=== PATIENT | female | born 1975 | race Caucasian/White ===

== ENCOUNTER → 2018-03-26 | Outpatient (REF) | payer BC ==
[2018-03-29 14:10] LABS: HPV HYBRID CAPTURE II Negative (Negative)
== END ==
LOC: M LAB REF 09:13
DX: Z12.4 Encounter for screening for malignant neoplasm of cervix (principal)
CPT/HCPCS: G0123

== ENCOUNTER 2020-03-28 19:00 | Emergency (ER) | payer BC ==
[2020-03-28] MEDS ORDERED: GI COCKTAIL 50ML BTL(HYOSCYAMINE/MAALOX/LIDOCAINE VISCOUS)(1:3:1) As Ordered ONE (23:07)
[2020-03-28] MEDS ORDERED: ASPIRIN 325 MG TAB As Ordered ONE (23:07)
[2020-03-29] MEDS ORDERED: SUCRALFATE 1 GM TAB As Ordered ONE (02:24)
[2020-04-24 17:16] LABS: BLOOD UREA NITROGEN 14 MG/DL (7-18); CALCIUM LEVEL 9.2 MG/DL (8.5-10.1); CARBON DIOXIDE LEVEL 25 MEQ/L (21-32); CHLORIDE LEVEL 109 MEQ/L (98-107); CK-MB VALUE MASS < 1.0 NG/ML (<3.6); CPK CREATINE PHOSPHOKINASE 80 U/L (26-192); CREATININE FOR GFR 0.95 MG/DL (0.55-1.30); GLOMERULAR FILTRATION RATE > 60.0 (>58); GLUCOSE, FASTING 114 MG/DL (70-100); MB/CK RELATIVE INDEX 1.25 (< OR =4); POTASSIUM SERUM 4.3 MEQ/L (3.5-5.1); SODIUM LEVEL 142 MEQ/L (136-145); TROPONIN I < 0.02 NG/ML (< 0.10)
[2020-05-01 12:33] LABS: HEMATOCRIT 36.8 % (36.0-47.0); HEMOGLOBIN 12.4 g/dl (12.0-15.5); MEAN CORPUSCULAR HEMOGLOBIN 30.2 pg (27.0-33.0); MEAN CORPUSCULAR HGB CONC 33.7 g/dl (32.0-36.5); MEAN CORPUSCULAR VOLUME 89.8 fl (80.0-96.0); PLATELET COUNT, AUTOMATED 255 10^3/uL (150-450); WHITE BLOOD COUNT 6.5 10^3/uL (4.0-10.0)
--- NOTE | 2020-05-20 15:17 | ECGEPIP ---
SINUS RHYTHM MINIMAL ST DEPRESSION BORDERLINE ECG LOW QRS VOLTAGE DELAYED R PROGRESSION NO PRIOR DUE TO DOWNTIME SEE SCANNED DOWNTIME REPORT MTDD
== END 2020-03-29 02:30 | disposition home or self-care (01) ==
LOC: M ED 19:00
DX: K21.9 Gastro-esophageal reflux disease without esophagitis (principal); F41.9 Anxiety disorder, unspecified; Z79.899 Other long term (current) drug therapy